=== PATIENT | male | born 1955 | race Caucasian/White ===

== ENCOUNTER → 2017-06-15 | Outpatient (CLI) | payer OTHER ==
[2017-06-15 15:09] LABS: ALT/SGPT 34 U/L (12-78); AST/SGOT 17 U/L (15-37); BLOOD UREA NITROGEN 17 mg/dl (7-18); BUN/CREATININE RATIO 14.5 (10-20); CALCIUM 9.6 mg/dl (8.5-10.1); CARBON DIOXIDE 26 mmol/L (21-32); CHLORIDE 109 mmol/L (98-107); CHOLESTEROL 147 mg/dl (0-200); GLUCOSE 97 mg/dl (70-99); POTASSIUM 4.2 mmol/L (3.5-5.1); SODIUM 141 mmol/L (136-145)
[2017-06-15 15:14] LABS: ALB/GLOB RATIO 1.1 (0.9-2); ALKALINE PHOSPHATASE 88 U/L (45-117); CHOLESTEROL/HDL RATIO 4.5; HDL CHOLESTEROL 33 mg/dl; LDL CHOLESTEROL CALCULATED 77 mg/dl; TRIGLYCERIDES 183 mg/dl (0-150); VERY LOW DENSITY LIPOPROT CALC 37 mg/dl
== END | disposition home or self-care (01) ==
LOC: C.LAB1850 13:42
PROVIDERS: ATTEND Family Medicine
DX: E78.5 Hyperlipidemia, unspecified (principal)

== ENCOUNTER 2017-12-24 23:34 | Inpatient (IN) | payer OTHER ==
[~2017-12-24] VITALS: Ht 188 cm; Wt 101.3 kg
[2017-12-24] MEDS ORDERED: DILTIAZEM BOLUS / DRIP IV STA (23:47)
[2017-12-24] MEDS ORDERED: ASPI81TA28 PO (23:56)
[2017-12-24] MEDS ORDERED: SIMV10TA2 PO (23:56)
[2017-12-24] MEDS ORDERED: RANITAB33 PO (23:57)
[2017-12-25] MEDS ORDERED: DILTIAZEM HCL 5 MG/ML 5 ML VIAL BOLUS/OMNI IV STA (00:01)
[2017-12-25 00:11] LABS: BASO % 0.3 %; BASO ABS # 0.03 K/uL (0-0.2); EOS % 1.8 %; HEMATOCRIT 46.4 % (42-52); HEMOGLOBIN 15.8 g/dL (14.0-18.0); IG# 0.12 K/uL (0.00-0.02); LYMPH % 39.7 %; LYMPH ABS # 4.46 K/uL (1.2-3.4); MEAN CELL VOLUME 87.1 fL (80-100); MEAN CORPUSCULAR HEMOGLOBIN 29.6 pg (25-34); MEAN CORPUSCULAR HGB CONC 34.1 g/dl (32-36); MEAN PLATELET VOLUME 10.3 fL (7.4-10.4); MONO % 5.8 %; MONO ABS # 0.65 K/uL (0.11-0.59); NEUT % 51.3 %; NEUT ABS # 5.77 K/uL (1.4-6.5); PLATELET COUNT 226 K/uL (130-400); RED CELL DISTRIBUTION WIDTH CV 12.9 % (11.5-14.5); RED CELL DISTRIBUTION WIDTH SD 40.9 fL (36.4-46.3); WHITE BLOOD COUNT 11.23 K/uL (4.8-10.8)
[2017-12-25] MEDS ORDERED: DILTIAZEM HCL INJ 125 MG in DEXTROSE 5% 100ML IV PRN (00:15)
[2017-12-25 00:28] LABS: ALT/SGPT 30 U/L (12-78); AST/SGOT 19 U/L (15-37); BLOOD UREA NITROGEN 21 mg/dl (7-18); CALCIUM 10.5 mg/dl (8.5-10.1); CARBON DIOXIDE 29 mmol/L (21-32); CREATININE 1.09 mg/dl (0.60-1.40); GLUCOSE 122 mg/dl (70-99); POTASSIUM 3.9 mmol/L (3.5-5.1); SODIUM 141 mmol/L (136-145)
[2017-12-25 00:29] LABS: PTT PATIENT 23.4 SECONDS (21.0-31.0)
[2017-12-25 00:39] LABS: ALKALINE PHOSPHATASE 108 U/L (45-117); CKMB 2.2 ng/ml (0.5-3.6); TOTAL PROTEIN 8.1 gm/dl (6.4-8.2)
[2017-12-25] MEDS ORDERED: LACTATED RINGER'S 1000ML 1,000 ML IV STA (01:29)
[2017-12-25] MEDS ORDERED: POTASSIUM CHLORIDE 10 MEQ TABCR PO STA (01:29)
--- NOTE | 2017-12-25 01:35 | EMERGENCY ROOM VISIT NOTE ---
History Report prepared by Alirio: Daniel Lerner Under the Supervision of: Dr. El Pereira D.O. First contact with patient: 23:43 Chief Complaint: IRREGULAR HEARTBEAT Stated Complaint: irregular heart beat History of Present Illness The patient is a 62 year old male who presents to the Emergency Room with complaints of an intermittent irregular heart beat beginning 2-3 weeks ago. The patient states that he developed a cold three weeks ago, and felt like he had fluid in his chest. He notes that his cold caused him to also have a fever and sore throat. He reports that he feels SOB and feels like he cannot take a deep breath without coughing. The patient states that he is still bringing up mucus when he coughs. He notes that his heart beat felt abnormal tonight while he was watching television. He reports that he has felt similar symptoms before, and states that his heart felt like it was fluttering. The patient notes that his heart beat now feels abnormal compared to being a flutter. He reports that his prior episodes only lasted a few minutes and then went away on their own. The patient states that his symptoms are lasting longer tonight, prompting his visit to the emergency department. He denies any lightheadedness and numbness. He notes that he has a history of high cholesterol. Source of History: patient Onset: 2-3 weeks ago Position: chest Quality: other (abnormal heart beat) Timing: intermittent Associated Symptoms: + fevers, + sorethroat, + cough (productive), + SOB Note: The patient denies any lightheadedness and numbness. Review of Systems See HPI for pertinent positives & negatives. A total of 10 systems reviewed and were otherwise negative. Past Medical & Surgical Medical Problems: (1) High cholesterol Family History No pertinent family history stated. Social History Smoking Status: Never Smoker Marital Status: Housing Status: lives with family Occupation Status: employed Current/Historical Medications Scheduled Aspirin (Aspirin Ec), 81 MG PO QPM Simvastatin (Zocor), 10 MG PO QPM Scheduled PRN Ranitidine Hcl (Zantac), 75 MG PO DAILY PRN for GI Upset Allergies Uncoded Allergies: PENICILLIN (Allergy, Unknown, unknown, 12/24/17) Physical Exam Vital Signs Date Time Temp Pulse Resp B/P (MAP) Pulse Ox O2 Delivery O2 Flow Rate FiO2 12/25/17 01:12 109/88 4/22/18 01:00 101 19 96 Room Air 12/25/17 00:30 95 18 118/74 95 Room Air 12/25/17 00:26 109 12/25/17 00:25 140 12/25/17 00:25 123 12/25/17 00:11 96 Room Air 12/25/17 00:00 139 21 128/105 96 Room Air 12/24/17 23:55 172 12/24/17 23:50 94 Room Air 12/24/17 23:37 36.5 105 20 138/91 97 Room Air Physical Exam CONSTITUTIONAL/VITAL SIGNS: Reviewed / noted above. GENERAL: Non-toxic in appearance. INTEGUMENTARY: Warm, dry, and [place]. HEAD: Normocephalic. EYES: without scleral icterus or trauma. ENT/OROPHARYNX: clear and moist. LYMPHADENOPATHY/NECK: Is supple without lymphadenopathy or meningismus. RESPIRATORY: Lungs clear and equal. CARDIOVASCULAR: Rapid and irregular. GI/ABDOMEN: Soft and nontender. No organomegaly or pulsatile mass. No rebound or guarding. Normal bowel sounds. EXTREMITIES: Warm and well perfused. BACK: No CVA tenderness. NEUROLOGICAL: Intact without focal deficits. PSYCHIATRIC: normal affect. MUSCULOSKELETAL: Normally developed with good muscle tone. Medical Decision & Procedures ER Provider Diagnostic Interpretation: Radiology results as stated below per my review and interpretation: CHEST X-RAY: No acute disease. No pneumothorax. No pneumonia. No cardiomegaly. Laboratory Results 12/24/17 23:47 Red Blood Count 5.33, Mean Corpuscular Volume 87.1, Mean Corpuscular Hemoglobin 29.6, Mean Corpuscular Hemoglobin Concent 34.1, Mean Platelet Volume 10.3, Neutrophils (%) (Auto) 51.3, Lymphocytes (%) (Auto) 39.7, Monocytes (%) (Auto) 5.8, Eosinophils (%) (Auto) 1.8, Basophils (%) (Auto) 0.3, Neutrophils # (Auto) 5.77, Lymphocytes # (Auto) 4.46, Monocytes # (Auto) 0.65, Eosinophils # (Auto) 0.20, Basophils # (Auto) 0.03 12/24/17 23:47 Test 12/24/17 23:47 White Blood Count 11.23 K/uL (4.8-10.8) Red Blood Count 5.33 M/uL (4.7-6.1) Hemoglobin 15.8 g/dL (14.0-18.0) Hematocrit 46.4 % (42-52) Mean Corpuscular Volume 87.1 fL (80-100) Mean Corpuscular Hemoglobin 29.6 pg (25-34) Mean Corpuscular Hemoglobin Concent 34.1 g/dl (32-36) Platelet Count 226 K/uL (130-400) Mean Platelet Volume 10.3 fL (7.4-10.4) Neutrophils (%) (Auto) 51.3 % Lymphocytes (%) (Auto) 39.7 % Monocytes (%) (Auto) 5.8 % Eosinophils (%) (Auto) 1.8 % Basophils (%) (Auto) 0.3 % Neutrophils # (Auto) 5.77 K/uL (1.4-6.5) Lymphocytes # (Auto) 4.46 K/uL (1.2-3.4) Monocytes # (Auto) 0.65 K/uL (0.11-0.59) Eosinophils # (Auto) 0.20 K/uL (0-0.5) Basophils # (Auto) 0.03 K/uL (0-0.2) RDW Standard Deviation 40.9 fL (36.4-46.3) RDW Coefficient of Variation 12.9 % (11.5-14.5) Immature Granulocyte % (Auto) 1.1 % Immature Granulocyte # (Auto) 0.12 K/uL (0.00-0.02) Prothrombin Time 10.0 SECONDS (9.0-12.0) Prothromb Time International Ratio 1.0 (0.9-1.1) Activated Partial Thromboplast Time 23.4 SECONDS (21.0-31.0) Partial Thromboplastin Ratio 0.9 Anion Gap 5.0 mmol/L (3-11) Est Creatinine Clear Calc Drug Dose 91.9 ml/min Estimated GFR () 85.1 Estimated GFR (Non- 73.4 BUN/Creatinine Ratio 19.1 (10-20) Calcium Level 10.5 mg/dl (8.5-10.1) Total Bilirubin 0.4 mg/dl (0.2-1) Direct Bilirubin 0.1 mg/dl (0-0.2) Aspartate Amino Transf (AST/SGOT) 19 U/L (15-37) Alanine Aminotransferase (ALT/SGPT) 30 U/L (12-78) Alkaline Phosphatase 108 U/L (45-117) Total Creatine Kinase 132 U/L (39-308) Creatine Kinase MB 2.2 ng/ml (0.5-3.6) Creatine Kinase MB Ratio 1.7 (0-3.0) Troponin I < 0.015 ng/ml (0-0.045) Total Protein 8.1 gm/dl (6.4-8.2) Albumin 4.0 gm/dl (3.4-5.0) Thyroid Stimulating Hormone (TSH) 5.260 uIu/ml (0.300-4.500) Laboratory results as stated above per my review. Medications Administered Medications (Trade) Dose Ordered Sig/Mari Route Start Time Stop Time Status Last Admin Dose Admin Diltiazem HCl (Cardizem Inj) 20 mg NOW STAT IV 12/25/17 00:01 12/25/17 00:02 DC 12/25/17 00:24 20 MG Diltiazem HCl 125 mg/Dextrose 125 ml @ 0 mls/hr Q0M PRN IV 12/25/17 00:15 01/24/18 00:14 12/25/17 00:25 10 MLS/HR ECG Per My Interpretation Indication: palpitations Rate (beats per minute): 174 Rhythm: atrial fibrillation Findings: no ectopy, other (No ST elevation) ED Course 2344: Previous medical records were reviewed. The patient was evaluated in room B10. A complete history and physical examination was performed. 0001: Diltiazem HCl 20mg IV 0056: I reevaluated and updated the patient. 0111: On reevaluation, the patient is stable. I discussed the results and findings with him. He verbalized agreement of the treatment plan. [facility] The patient will be evaluated for further management and care. Medical Decision the differential was considered includes acute myocardial infarction, acute coronary syndrome, myocarditis, pericarditis, pericardial effusions /tamponade, esophageal perforation, thoracic aortic dissection, pulmonary embolism, pneumonia, pneumothorax, pancreatitis, shingles, acute cholecystitis, perforated abdominal viscus. This is a 62-year-old male who presents to the ED with a chief complaint of palpitations. The patient states that his symptoms started earlier today. Details are listed above. The patient also reports some intermittent palpitations that would resolve after a few minutes over the past several weeks. Tonight his symptoms do not resolve. He states that he has had the symptoms for about 4-6 hours. His physical exam as noted above. He does have atrial fibrillation with RVR noted on his 12-lead EKG and monitor. There are no ischemic changes. CBC and complete metabolic panel were unremarkable. Troponin was negative, TSH was slightly elevated. Patient was started on IV Cardizem bolus and drip. This did improve the heart rate somewhat. His initial heart rate was in the 170s. The heart rate improved to the 100 range. He will be seen by the hospitalist service for further inpatient evaluation and care. Medication Reconcilliation Current Medication List: was personally reviewed by me Blood Pressure Screening Patient's blood pressure: Normal blood pressure Blood pressure disposition: Did not require urgent referral Consults Time Called: 0104 [facility] Returned Call: 0111 Discussed the patient's case. The patient will be evaluated for further treatment and disposition. Impression Primary Impression: Atrial fibrillation with RVR Additional Impression: New onset a-fib Scribe Attestation The scribe's documentation has been prepared under my direction and personally reviewed by me in its entirety. I confirm that the note above accurately reflects all work, treatment, procedures, and medical decision making performed by me. Departure Information Dispostion Being Evaluated By Hospitalist Referrals Alvaro Watt M.D. (PCP) Patient Instructions My [facility] Problem Qualifiers
[2017-12-25] MEDS ORDERED: METOPROLOL SUCC 25MG EXT REL TAB PO STA (01:44)
[2017-12-25 02:47] LABS: PHOSPHORUS 3.6 mg/dl (2.5-4.9)
--- NOTE | 2017-12-25 02:53 | Progress Note ---
Internal Med Progress Note Date of Service: Dec 25, 2017. Provider Documentation: I was consulted by Dr. Pereira ([facility] to admit patient for new onset AF. Patient PCP is Dr. Watt from [facility]. Patient requesting to have [facility] providers for confinement due to his [employer] insurance. Patient is certain that he will be paying extra for [facility] provider services basing from his experience. Dr. De Paz ([facility] early intervention school psychologist) has kindly agreed admit patient. Vital Signs: Date Time Temp Pulse Resp B/P (MAP) Pulse Ox O2 Delivery O2 Flow Rate FiO2 12/25/17 04:33 36.6 80 18 131/82 99 Room Air 12/25/17 03:45 36.5 109 16 110/79 96 12/25/17 03:36 109 16 110/79 96 Room Air 12/25/17 02:00 99 17 108/74 95 Room Air 12/25/17 01:30 98 19 136/65 95 Room Air 12/25/17 01:12 109/88 12/25/17 01:00 101 19 96 Room Air 12/25/17 00:30 95 18 118/74 95 Room Air 12/25/17 00:26 109 12/25/17 00:25 140 12/25/17 00:25 123 12/25/17 00:11 96 Room Air 12/25/17 00:00 139 21 128/105 96 Room Air 12/24/17 23:55 172 12/24/17 23:50 94 Room Air 12/24/17 23:37 36.5 105 20 138/91 97 Room Air Lab Results: Results Past 24 Hours Test 12/24/17 23:47 12/25/17 04:26 Range/Units White Blood Count 11.23 4.8-10.8 K/uL Red Blood Count 5.33 4.7-6.1 M/uL Hemoglobin 15.8 14.0-18.0 g/dL Hematocrit 46.4 42-52 % Mean Corpuscular Volume 87.1 80-100 fL Mean Corpuscular Hemoglobin 29.6 25-34 pg Mean Corpuscular Hemoglobin Concent 34.1 32-36 g/dl Platelet Count 226 130-400 K/uL Mean Platelet Volume 10.3 7.4-10.4 fL Neutrophils (%) (Auto) 51.3 % Lymphocytes (%) (Auto) 39.7 % Monocytes (%) (Auto) 5.8 % Eosinophils (%) (Auto) 1.8 % Basophils (%) (Auto) 0.3 % Neutrophils # (Auto) 5.77 1.4-6.5 K/uL Lymphocytes # (Auto) 4.46 1.2-3.4 K/uL Monocytes # (Auto) 0.65 0.11-0.59 K/uL Eosinophils # (Auto) 0.20 0-0.5 K/uL Basophils # (Auto) 0.03 0-0.2 K/uL RDW Standard Deviation 40.9 36.4-46.3 fL RDW Coefficient of Variation 12.9 11.5-14.5 % Immature Granulocyte % (Auto) 1.1 % Immature Granulocyte # (Auto) 0.12 0.00-0.02 K/uL Prothrombin Time 10.0 9.0-12.0 SECONDS Prothromb Time International Ratio 1.0 0.9-1.1 Activated Partial Thromboplast Time 23.4 21.0-31.0 SECONDS Partial Thromboplastin Ratio 0.9 D-Dimer 520 0-500 ug/L FEU Sodium Level 141 141 136-145 mmol/L Potassium Level 3.9 4.2 3.5-5.1 mmol/L Chloride Level 107 109 98-107 mmol/L Carbon Dioxide Level 29 28 21-32 mmol/L Anion Gap 5.0 4.0 3-11 mmol/L Blood Urea Nitrogen 21 17 7-18 mg/dl Creatinine 1.09 0.95 0.60-1.40 mg/dl Est Creatinine Clear Calc Drug Dose 91.9 101.9 ml/min Estimated GFR () 85.1 100.4 Estimated GFR (Non- 73.4 86.7 BUN/Creatinine Ratio 19.1 18.1 10-20 Random Glucose 122 106 70-99 mg/dl Calcium Level 10.5 10.1 8.5-10.1 mg/dl Phosphorus Level 3.6 3.0 2.5-4.9 mg/dl Magnesium Level 2.1 2.1 1.8-2.4 mg/dl Total Bilirubin 0.4 0.3 0.2-1 mg/dl Direct Bilirubin 0.1 < 0.1 0-0.2 mg/dl Aspartate Amino Transf (AST/SGOT) 19 16 15-37 U/L Alanine Aminotransferase (ALT/SGPT) 30 27 12-78 U/L Alkaline Phosphatase 108 95 45-117 U/L Total Creatine Kinase 132 39-308 U/L Creatine Kinase MB 2.2 0.5-3.6 ng/ml Creatine Kinase MB Ratio 1.7 0-3.0 Troponin I < 0.015 0-0.045 ng/ml Total Protein 8.1 7.4 6.4-8.2 gm/dl Albumin 4.0 3.6 3.4-5.0 gm/dl Thyroid Stimulating Hormone (TSH) 5.260 0.300-4.500 uIu/ml Free Thyroxine 0.94 0.80-1.60 ng/dl Total Triiodothyronine 1.16 0.60-1.81 ng/ml Globulin 3.8 2.5-4.0 gm/dl Albumin/Globulin Ratio 0.9 0.9-2
--- NOTE | 2017-12-25 03:40 | History and Physical ---
History & Physical Date & Time of Service: Dec 25, 2017 at 03:39 Chief Complaint: irregular heart beat Primary Care Physician: Alvaro Watt M.D. History of Present Illness Source: patient 62-year-old male with a past medical history of hyperlipidemia presented with complaints of irregular heart rate intermittently which started about 3 weeks ago. The patient states that he had a history of atrial flutter several years ago and was on metoprolol which was stopped about 9 years ago. He had since been asymptomatic but developed intermittent palpitations about 3 weeks ago. The palpitations would normally resolve after a few minutes but tonight they seem to persist. denies any lightheadedness or dizziness, shortness of breath or chest pain. Past Medical/Surgical History Medical Problems: (1) Afib (2) High cholesterol Family History Noncontributory Social History Smoking Status: Never Smoker Smokeless Tobacco Use: No Alcohol Use: none Drug Use: none Marital Status: Housing status: lives with family Occupational Status: employed Immunizations History of Influenza Vaccine: Unknown History of Tetanus Vaccine?: Unknown History of Pneumococcal: Unknown History of Hepatitis B Vaccine: Unknown Allergies Uncoded Allergies: PENICILLIN (Allergy, Unknown, unknown, 12/24/17) Home Medications Scheduled Aspirin (Aspirin Ec), 81 MG PO QPM Simvastatin (Zocor), 10 MG PO QPM Scheduled PRN Ranitidine Hcl (Zantac), 75 MG PO DAILY PRN for GI Upset Review of Systems Constitutional: No fever, No chills Eyes: No worsening of vision ENT: No hearing loss Respiratory: No cough, No sputum, No shortness of breath Cardiovascular: + palpitations, No chest pain Abdomen: No pain, No nausea Musculoskeletal: No joint pain Genitourinary - Male: No hematuria, No dysuria, No urinary frequency Neurologic: No memory loss, No numbness/tingling Psychiatric: No depression symptoms Endocrine: No fatigue Hematologic / Lymphatic: No abnormal bleeding/bruising Integumentary: No rash Physical Exam Vital Signs Date Time Temp Pulse Resp B/P (MAP) Pulse Ox O2 Delivery O2 Flow Rate FiO2 12/25/17 03:36 109 16 110/79 96 Room Air 12/25/17 02:00 99 17 108/74 95 Room Air 12/25/17 01:30 98 19 136/65 95 Room Air 4/22/18 01:12 109/88 12/25/17 01:00 101 19 96 Room Air 12/25/17 00:30 95 18 118/74 95 Room Air 12/25/17 00:26 109 12/25/17 00:25 140 12/25/17 00:25 123 12/25/17 00:11 96 Room Air 12/25/17 00:00 139 21 128/105 96 Room Air 12/24/17 23:55 172 12/24/17 23:50 94 Room Air 12/24/17 23:37 36.5 105 20 138/91 97 Room Air General Appearance: WD/WN, no apparent distress Eyes: normal inspection ENT: hearing grossly normal Neck: supple Respiratory/Chest: chest non-tender, lungs clear, normal breath sounds, no respiratory distress, no accessory muscle use Cardiovascular: + irregularly irregular Abdomen/GI: non tender, soft Extremities/Musculoskelatal: no calf tenderness, no pedal edema Neurologic/Psych: alert, normal mood/affect, oriented x 3 Diagnostics Laboratory Results Results Past 24 Hours Test 12/24/17 23:47 Range/Units White Blood Count 11.23 4.8-10.8 K/uL Red Blood Count 5.33 4.7-6.1 M/uL Hemoglobin 15.8 14.0-18.0 g/dL Hematocrit 46.4 42-52 % Mean Corpuscular Volume 87.1 80-100 fL Mean Corpuscular Hemoglobin 29.6 25-34 pg Mean Corpuscular Hemoglobin Concent 34.1 32-36 g/dl Platelet Count 226 130-400 K/uL Mean Platelet Volume 10.3 7.4-10.4 fL Neutrophils (%) (Auto) 51.3 % Lymphocytes (%) (Auto) 39.7 % Monocytes (%) (Auto) 5.8 % Eosinophils (%) (Auto) 1.8 % Basophils (%) (Auto) 0.3 % Neutrophils # (Auto) 5.77 1.4-6.5 K/uL Lymphocytes # (Auto) 4.46 1.2-3.4 K/uL Monocytes # (Auto) 0.65 0.11-0.59 K/uL Eosinophils # (Auto) 0.20 0-0.5 K/uL Basophils # (Auto) 0.03 0-0.2 K/uL RDW Standard Deviation 40.9 36.4-46.3 fL RDW Coefficient of Variation 12.9 11.5-14.5 % Immature Granulocyte % (Auto) 1.1 % Immature Granulocyte # (Auto) 0.12 0.00-0.02 K/uL Prothrombin Time 10.0 9.0-12.0 SECONDS Prothromb Time International Ratio 1.0 0.9-1.1 Activated Partial Thromboplast Time 23.4 21.0-31.0 SECONDS Partial Thromboplastin Ratio 0.9 D-Dimer 520 0-500 ug/L FEU Sodium Level 141 136-145 mmol/L Potassium Level 3.9 3.5-5.1 mmol/L Chloride Level 107 98-107 mmol/L Carbon Dioxide Level 29 21-32 mmol/L Anion Gap 5.0 3-11 mmol/L Blood Urea Nitrogen 21 7-18 mg/dl Creatinine 1.09 0.60-1.40 mg/dl Est Creatinine Clear Calc Drug Dose 91.9 ml/min Estimated GFR () 85.1 Estimated GFR (Non- 73.4 BUN/Creatinine Ratio 19.1 10-20 Random Glucose 122 70-99 mg/dl Calcium Level 10.5 8.5-10.1 mg/dl Phosphorus Level 3.6 2.5-4.9 mg/dl Magnesium Level 2.1 1.8-2.4 mg/dl Total Bilirubin 0.4 0.2-1 mg/dl Direct Bilirubin 0.1 0-0.2 mg/dl Aspartate Amino Transf (AST/SGOT) 19 15-37 U/L Alanine Aminotransferase (ALT/SGPT) 30 12-78 U/L Alkaline Phosphatase 108 45-117 U/L Total Creatine Kinase 132 39-308 U/L Creatine Kinase MB 2.2 0.5-3.6 ng/ml Creatine Kinase MB Ratio 1.7 0-3.0 Troponin I < 0.015 0-0.045 ng/ml Total Protein 8.1 6.4-8.2 gm/dl Albumin 4.0 3.4-5.0 gm/dl Thyroid Stimulating Hormone (TSH) 5.260 0.300-4.500 uIu/ml Free Thyroxine 0.94 0.80-1.60 ng/dl Total Triiodothyronine 1.16 0.60-1.81 ng/ml Impression Assessment and Plan 62-year-old male with a past medical history of hyperlipidemia presented with complaints of intermittent palpitations but started about 3 weeks ago and have been persistent all day today. New onset atrial fibrillation with RVR -EKG suggestive of A. fib with RVR -Electrolytes within normal limits -TSH elevated at 5.26, T3 and T4 within normal limits -Started on Cardizem drip in the ER , Toprol-XL 25 mg QAM -[id number] score 0, annual stroke risk 0.2% and may not require anticoagulation considering low risk -He is already on 81 mg aspirin which will be continued -Echo ordered -Patient requests cardiology consult Hyperlipidemia: - Continue statin DVT prophylaxis: -SCDs Full code Admitted to telemetry Attending addendum: I have physically seen this patient, have supervised the medical residents activities, and agree with the H&P unless as otherwise noted. Assessment and Plan: New onset atrial fibrillation with RVR-- The patient will be admitted to telemetry for serial cardiac enzymes, serial EKG's, cardiac rhythm monitoring and a 2-D echocardiogram with Dopplers. The patient describes an initial possible episode about 10 years ago, and having been on Lopressor for 1 year, which was then discontinued. He reports palpitation sensations over the past few weeks, but nothing as persistent as this evening where his symptoms have lasted for several hours. He was initially presented to the [facility] service, but due to insurance reasons was changed over to [facility] service. He had already been started on a Cardizem drip by the emergency department, and had already been given Toprol-XL 25 mg. [id number] risk score suggest that he can continue to use aspirin 81 mg daily for prophylaxis as he has been up to this time for general heart prophylaxis. Consult cardiology for inpatient and outpatient follow-up. Hyperlipidemia-- Continue simvastatin 10 mg p.o. every evening. Check a fasting lipid panel and hemoglobin A1c. Advanced Directives Existing Advance Directive: No Existing Living Will: No Existing Power of Cigarette Paper Tester: No Resuscitation Status full VTE Prophylaxis Will order VTE Prophylaxis: Yes Social Service Consult None Apply Resident Tracking Resident Involvement: Resident Care Provided Care Provided: [facility]
[2017-12-25] MEDS ORDERED: ALUMINUM/MAGNESIUM/SIMETH (MAALOX MAX) 30 ML UDC PO PRN (03:45)
[2017-12-25] MEDS ORDERED: ACETAMINOPHEN 325 MG TAB PO PRN (03:45)
[2017-12-25 04:33] VITALS: BP 131/82; PULSE 80; TEMP 36.6; O2SAT 99; Ht 188 cm; Wt 101.3 kg
[2017-12-25] MEDS ORDERED: RANITIDINE HCL 150 MG TAB PO PRN (04:45)
[2017-12-25] MEDS ORDERED: SODIUM CHLORIDE 0.9% 1000ML 1,000 ML IV SCH (05:00)
[2017-12-25 05:06] LABS: ALBUMIN 3.6 gm/dl (3.4-5.0); ALT/SGPT 27 U/L (12-78); AST/SGOT 16 U/L (15-37); BLOOD UREA NITROGEN 17 mg/dl (7-18); CALCIUM 10.1 mg/dl (8.5-10.1); CARBON DIOXIDE 28 mmol/L (21-32); CREATININE 0.95 mg/dl (0.60-1.40); GLUCOSE 106 mg/dl (70-99); POTASSIUM 4.2 mmol/L (3.5-5.1); SODIUM 141 mmol/L (136-145)
[2017-12-25 05:12] LABS: ALKALINE PHOSPHATASE 95 U/L (45-117); TOTAL PROTEIN 7.4 gm/dl (6.4-8.2)
--- NOTE | 2017-12-25 06:17 | DIAGNOSTIC IMAGING REPORT ---
CHEST ONE VIEW PORTABLE CLINICAL HISTORY: Evaluate Fever/Sepsis fever COMPARISON STUDY: No previous studies for comparison. FINDINGS: The bones soft tissues and hemidiaphragms are normal. The cardiomediastinal silhouette is normal. The lungs are clear. The pulmonary vasculature is normal. IMPRESSION: Negative chest. The above report was generated using voice recognition software. It may contain grammatical, syntax or spelling errors. Electronically signed by: Bryce Gregg M.D. 12/25/2017 6:16 AM Dictated Date/Time: 12/25/2017 6:16 AM
[2017-12-25 07:31] VITALS: BP 118/71; PULSE 87; TEMP 37; O2SAT 98
[2017-12-25 08:00] VITALS: O2SAT 98
[2017-12-25] MEDS ORDERED: METOPROLOL SUCC 25MG EXT REL TAB PO SCH ×2 (09:00→21:00)
--- NOTE | 2017-12-25 09:09 | Family Medicine Progress Note ---
Progress Note Date of Service Dec 25, 2017. Subjective Pt evaluation today including: conversation w/ patient, conversation w/ family () Found patient lying upright in the bed. He recounts the HPI events, stating that last night the palpitations seemed faster than the prior 3-4 weeks. Says since beginning medication here that feeling has resolved. Says that for a brief time during the same 'faster' feeling that he had some self-rated 2/10 chest tightness, but this has also resolved. Otherwise denies any chest pain or discomfort. Denies any SOB, cough, or respiratory changes throughout this time. This morning, has no acute concerns. Constitutional: No fever Respiratory: No cough, No shortness of breath Cardiovascular: + palpitations, No chest pain, No edema Abdomen: No pain, No nausea, No vomiting Medications Current Inpatient Medications Medications (Trade) Dose Ordered Sig/Mari Route Start Time Stop Time Status Last Admin Dose Admin Sodium Chloride 1,000 ml @ 125 mls/hr Q8H IV 12/25/17 05:00 01/24/18 04:59 12/25/17 05:04 125 MLS/HR Acetaminophen (Tylenol Tab) 650 mg Q4H PRN PO 12/25/17 03:45 01/24/18 03:44 Al Hydrox/Mg Hydrox/Simethicone (Maalox Max Susp) 15 ml Q4H PRN PO 12/25/17 03:45 01/24/18 03:44 Metoprolol Succinate (Toprol Xl Tab) 25 mg QAM PO 12/25/17 09:00 01/24/18 08:59 Future Hold Aspirin (Ecotrin Tab) 81 mg QPM PO 12/25/17 21:00 01/24/18 20:59 Simvastatin (Zocor Tab) 10 mg QPM PO 12/25/17 21:00 01/24/18 20:59 Ranitidine HCl (zANTac TAB) 75 mg DAILY PRN PO 12/25/17 04:45 01/24/18 04:44 Objective Vital Signs Date Time Temp Pulse Resp B/P (MAP) Pulse Ox O2 Delivery O2 Flow Rate FiO2 12/25/17 07:31 37.0 87 18 118/71 (87) 98 12/25/17 04:33 36.6 80 18 131/82 99 Room Air 12/25/17 03:45 36.5 109 16 110/79 96 12/25/17 03:36 109 16 110/79 96 Room Air 12/25/17 02:00 99 17 108/74 95 Room Air 12/25/17 01:30 98 19 136/65 95 Room Air 12/25/17 01:12 109/88 12/25/17 01:00 101 19 96 Room Air 12/25/17 00:30 95 18 118/74 95 Room Air 12/25/17 00:26 109 12/25/17 00:25 140 12/25/17 00:25 123 12/25/17 00:11 96 Room Air 12/25/17 00:00 139 21 128/105 96 Room Air 12/24/17 23:55 172 12/24/17 23:50 94 Room Air 12/24/17 23:37 36.5 105 20 138/91 97 Room Air Physical Exam Notes: General Appearance: Awake, alert & oriented, comfortable in general, NAD. CV: +S1S2 irregularly irregular but not tachycardic, no murmur. 2+ radial, carotid, dorsalis pedis pulses. No carotid bruits bilaterally. Pulm: Clear to auscultation throughout. Abdomen: +BS, soft, non-tender, non-distended. Extremities: No pedal edema or calf tenderness. Moving all extremities naturally and easily. Neuro: No gross neuro deficits. Laboratory Results 12/24/17 23:47 Red Blood Count 5.33, Mean Corpuscular Volume 87.1, Mean Corpuscular Hemoglobin 29.6, Mean Corpuscular Hemoglobin Concent 34.1, Mean Platelet Volume 10.3, Neutrophils (%) (Auto) 51.3, Lymphocytes (%) (Auto) 39.7, Monocytes (%) (Auto) 5.8, Eosinophils (%) (Auto) 1.8, Basophils (%) (Auto) 0.3, Neutrophils # (Auto) 5.77, Lymphocytes # (Auto) 4.46, Monocytes # (Auto) 0.65, Eosinophils # (Auto) 0.20, Basophils # (Auto) 0.03 12/25/17 04:26 Test 12/24/17 23:47 12/25/17 04:26 12/25/17 08:38 White Blood Count 11.23 K/uL (4.8-10.8) Red Blood Count 5.33 M/uL (4.7-6.1) Hemoglobin 15.8 g/dL (14.0-18.0) Hematocrit 46.4 % (42-52) Mean Corpuscular Volume 87.1 fL (80-100) Mean Corpuscular Hemoglobin 29.6 pg (25-34) Mean Corpuscular Hemoglobin Concent 34.1 g/dl (32-36) Platelet Count 226 K/uL (130-400) Mean Platelet Volume 10.3 fL (7.4-10.4) Neutrophils (%) (Auto) 51.3 % Lymphocytes (%) (Auto) 39.7 % Monocytes (%) (Auto) 5.8 % Eosinophils (%) (Auto) 1.8 % Basophils (%) (Auto) 0.3 % Neutrophils # (Auto) 5.77 K/uL (1.4-6.5) Lymphocytes # (Auto) 4.46 K/uL (1.2-3.4) Monocytes # (Auto) 0.65 K/uL (0.11-0.59) Eosinophils # (Auto) 0.20 K/uL (0-0.5) Basophils # (Auto) 0.03 K/uL (0-0.2) RDW Standard Deviation 40.9 fL (36.4-46.3) RDW Coefficient of Variation 12.9 % (11.5-14.5) Immature Granulocyte % (Auto) 1.1 % Immature Granulocyte # (Auto) 0.12 K/uL (0.00-0.02) Prothrombin Time 10.0 SECONDS (9.0-12.0) Prothromb Time International Ratio 1.0 (0.9-1.1) Activated Partial Thromboplast Time 23.4 SECONDS (21.0-31.0) Partial Thromboplastin Ratio 0.9 D-Dimer 520 ug/L FEU (0-500) Total Creatine Kinase 132 U/L (39-308) Creatine Kinase MB 2.2 ng/ml (0.5-3.6) Creatine Kinase MB Ratio 1.7 (0-3.0) Thyroid Stimulating Hormone (TSH) 5.260 uIu/ml (0.300-4.500) Free Thyroxine 0.94 ng/dl (0.80-1.60) Total Triiodothyronine 1.16 ng/ml (0.60-1.81) Anion Gap 4.0 mmol/L (3-11) Est Creatinine Clear Calc Drug Dose 101.9 ml/min Estimated GFR () 100.4 Estimated GFR (Non- 86.7 BUN/Creatinine Ratio 18.1 (10-20) Calcium Level 10.1 mg/dl (8.5-10.1) Phosphorus Level 3.0 mg/dl (2.5-4.9) Magnesium Level 2.1 mg/dl (1.8-2.4) Total Bilirubin 0.3 mg/dl (0.2-1) Direct Bilirubin < 0.1 mg/dl (0-0.2) Aspartate Amino Transf (AST/SGOT) 16 U/L (15-37) Alanine Aminotransferase (ALT/SGPT) 27 U/L (12-78) Alkaline Phosphatase 95 U/L (45-117) Total Protein 7.4 gm/dl (6.4-8.2) Albumin 3.6 gm/dl (3.4-5.0) Globulin 3.8 gm/dl (2.5-4.0) Albumin/Globulin Ratio 0.9 (0.9-2) Assessment and Plan 62-year-old male was admitted on for A. fib with RVR after experiencing palpitations for the past 3-4 weeks. PMH: HLD New onset atrial fibrillation with RVR: Patient says he has a history of atrial flutter several years ago and was on metoprolol for a brief time. With these recent palpitations, the patient experienced some mild chest tightness when his rates were their highest elevation. No associated respiratory symptoms. CXR here showed nothing acute. Normal troponins. Cardiology was consulted. An echocardiogram was performed and was reassuring (see full report). He was started on a diltiazem drip and transitioned over to both metoprolol and diltiazem p.o. with some conversion back to sinus this point. - Goal is to transition to a single agent upon discharge. - His CHADS-VASc score is zero therefore anticoagulation is not warranted at this time. However, he remains on his home aspirin 81 mg for general cardiac prevention. Hyperlipidemia: On home Zocor 10 mg daily. Code status: Full code Diet: AHA heart healthy DVT prophy: SCD's PT/OT: Deferred Dispo: Admit to telemetry Resident Physician Supervision Note: I interviewed and examined the patient. Discussed with Dr. Pink and agree with findings and plan as documented in the note. Any exceptions or clarifications are listed here: None Documented By: Geovanni Vaca feeling better now that rates are better no sob/lightheaded, is still feeling fluttering vitals noted nad breathing unlabored irreg irreg echo P PAF / RVR - echo pending, TSH sl high free T4 OK, rate control improving - transition to PO meds. appears almost certainly to only need rate control discussed role of rhythm control - would want to see if he has exertional sx. as long as no findings on echo CHADSVasc appearing nil. elevated TSH - repeat ~4wks CP - resolved. seemed to only be peak stress. EKG nonspecific given rate, troponin negative. likely related to having HR 170+ Resident Tracking Resident Involvement: Resident Care Provided Care Provided: Adult Hospital Medicine (inpatient)
[2017-12-25] MEDS ORDERED: METOPROLOL SUCC 25MG EXT REL TAB PO ONE (11:04)
[2017-12-25 11:24] VITALS: BP 118/73; PULSE 96; TEMP 37; O2SAT 96
[2017-12-25] MEDS ORDERED: DILTIAZEM HCL 30 MG TAB PO SCH (13:15)
--- NOTE | 2017-12-25 13:45 | Cardiology Consultation ---
Cardiology Consultation Date of Consultation: Dec 25, 2017. Requesting Physician: Dr. Holloway Attending Physician: Dr. Vaca Reason for Consultation: Atrial fibrillation Pt evaluation today including: conversation w/ patient, conversation w/ family , physical exam, chart review, lab review, review of studies, review of inpatient medication list, conversation w/ attending (primary team) History of Present Illness Mr. Narayan is a very pleasant 62-year-old gentleman with a history significant for paroxysmal atrial flutter and dyslipidemia. He was admitted to [facility] on 12/24/2017 with atrial fibrillation with rapid ventricular response. He admits that approximately 9 years ago he was diagnosed with atrial flutter when he wore an outpatient monitor for palpitations. He was started on metoprolol and took the medication for approximately 1 year. At that point was discontinued by his PCP as his symptoms had resolved. For the past 3 weeks he has had intermittent fluttering sensation that would last for 2-4 hours before spontaneously resolving. Symptoms would occur during the day and his heart did not feel as though it was racing. Last evening, he felt more palpitations and when he lay down to go to bed he felt as though his heart was racing. The symptoms continued and therefore he sought medical evaluation. He was found to be in atrial fibrillation with rapid ventricular response. He was started on a diltiazem drip. His symptoms improved. He no longer and felt the racing symptoms but did feel occasional fluttering if laying in bed at rest. If he was otherwise preoccupied with conversation with family, he would not notice the palpitations, described as a fluttering sensation. On a diltiazem drip of 5 milligrams/hour, his heart rate was reasonably controlled. He was then started on metoprolol succinate 25 mg twice daily by the primary service. His family then visited and his heart rate became more elevated and nursing staff increased diltiazem drip to 10 milligrams/hour. When he felt his heart racing, he developed a left upper chest tightness that was rated mild, 2/10. This pain was constant for a few hours before resolving after medical treatment was initiated as above. He does not exercise but remains active at home. He denies exertional shortness of breath, syncope, near-syncope, or chest discomfort. He denies edema, melena, hematochezia, hematuria, or other bleeding. He did have a sore throat, rhinorrhea, cough, and low-grade fever of 100.8 F approximately 2 weeks ago. His symptoms resolved in approximately 2 days. Review of systems: As above review of systems otherwise negative/unremarkable. Past Medical/Surgical History 1. Paroxysmal atrial flutter 2. Dyslipidemia Family History Father had CABG in his 60s. He at 91 years of age. Social History Smoking Status: Never Smoker History of Alcohol Use: No He smoked cigars occasionally approximately 30 years ago. No significant alcohol. No drugs. Lives at home with his . Has 2 sons and 1 daughter. His , daughter Eula, and her significant other, Sheldon, accompany him today. He works as a software release manager. He lives in the [facility]. Review of Systems Respiratory: No cough, No shortness of breath Cardiac: + palpitations, No chest pain, No edema Allergies Uncoded Allergies: PENICILLIN (Allergy, Unknown, unknown, 12/24/17) Medications Current Inpatient Medications Medications (Trade) Dose Ordered Sig/Mari Route Start Time Stop Time Status Last Admin Dose Admin Acetaminophen (Tylenol Tab) 650 mg Q4H PRN PO 12/25/17 03:45 01/24/18 03:44 Al Hydrox/Mg Hydrox/Simethicone (Maalox Max Susp) 15 ml Q4H PRN PO 12/25/17 03:45 01/24/18 03:44 Aspirin (Ecotrin Tab) 81 mg QPM PO 12/25/17 21:00 01/24/18 20:59 Simvastatin (Zocor Tab) 10 mg QPM PO 12/25/17 21:00 01/24/18 20:59 Ranitidine HCl (zANTac TAB) 75 mg DAILY PRN PO 12/25/17 04:45 01/24/18 04:44 Metoprolol Succinate (Toprol Xl Tab) 25 mg BID PO 12/25/17 21:00 01/24/18 20:59 Diltiazem HCl (Cardizem Tab) 30 mg Q6 PO 12/25/17 13:15 01/24/18 13:14 Physical Exam Vital Signs Past 12 Hours Date Time Temp Pulse Resp B/P (MAP) Pulse Ox O2 Delivery O2 Flow Rate FiO2 12/25/17 12:00 Room Air 12/25/17 11:24 37.0 96 18 118/73 (88) 96 12/25/17 08:00 98 Room Air 12/25/17 07:31 37.0 87 18 118/71 (87) 98 12/25/17 04:33 36.6 80 18 131/82 99 Room Air 12/25/17 03:45 36.5 109 16 110/79 96 12/25/17 03:36 109 16 110/79 96 Room Air 12/25/17 02:00 99 17 108/74 95 Room Air 12/25/17 01:30 98 19 136/65 95 Room Air Gen.: No acute distress. Alert and oriented. HEENT: Anicteric sclera. Neck: No JVD. No bruits. Normal carotid upstrokes bilaterally. Cardiac: PMI was nondisplaced. No ventricular heave. Irregularly irregular. Normal S1-S2. No murmurs, rubs, or gallops. Pulmonary: Clear to auscultation bilaterally without wheezes, rales, or rhonchi. Abdomen: Soft, nontender, nondistended, with normoactive bowel sounds. No bruits noted. Extremities: 2+ radial pulses bilaterally. 2+ posterior tibialis pulses bilaterally. No edema or cyanosis. Psychiatric: Affect appears appropriate. Data Laboratory Results: Last 24 Hours Test 12/24/17 23:47 12/25/17 04:26 12/25/17 08:38 White Blood Count 11.23 K/uL Red Blood Count 5.33 M/uL Hemoglobin 15.8 g/dL Hematocrit 46.4 % Mean Corpuscular Volume 87.1 fL Mean Corpuscular Hemoglobin 29.6 pg Mean Corpuscular Hemoglobin Concent 34.1 g/dl Platelet Count 226 K/uL Mean Platelet Volume 10.3 fL Neutrophils (%) (Auto) 51.3 % Lymphocytes (%) (Auto) 39.7 % Monocytes (%) (Auto) 5.8 % Eosinophils (%) (Auto) 1.8 % Basophils (%) (Auto) 0.3 % Neutrophils # (Auto) 5.77 K/uL Lymphocytes # (Auto) 4.46 K/uL Monocytes # (Auto) 0.65 K/uL Eosinophils # (Auto) 0.20 K/uL Basophils # (Auto) 0.03 K/uL RDW Standard Deviation 40.9 fL RDW Coefficient of Variation 12.9 % Immature Granulocyte % (Auto) 1.1 % Immature Granulocyte # (Auto) 0.12 K/uL Prothrombin Time 10.0 SECONDS Prothromb Time International Ratio 1.0 Activated Partial Thromboplast Time 23.4 SECONDS Partial Thromboplastin Ratio 0.9 D-Dimer 520 ug/L FEU Sodium Level 141 mmol/L 141 mmol/L Potassium Level 3.9 mmol/L 4.2 mmol/L Chloride Level 107 mmol/L 109 mmol/L Carbon Dioxide Level 29 mmol/L 28 mmol/L Anion Gap 5.0 mmol/L 4.0 mmol/L Blood Urea Nitrogen 21 mg/dl 17 mg/dl Creatinine 1.09 mg/dl 0.95 mg/dl Est Creatinine Clear Calc Drug Dose 91.9 ml/min 101.9 ml/min Estimated GFR () 85.1 100.4 Estimated GFR (Non- 73.4 86.7 BUN/Creatinine Ratio 19.1 18.1 Random Glucose 122 mg/dl 106 mg/dl Calcium Level 10.5 mg/dl 10.1 mg/dl Phosphorus Level 3.6 mg/dl 3.0 mg/dl Magnesium Level 2.1 mg/dl 2.1 mg/dl Total Bilirubin 0.4 mg/dl 0.3 mg/dl Direct Bilirubin 0.1 mg/dl < 0.1 mg/dl Aspartate Amino Transf (AST/SGOT) 19 U/L 16 U/L Alanine Aminotransferase (ALT/SGPT) 30 U/L 27 U/L Alkaline Phosphatase 108 U/L 95 U/L Total Creatine Kinase 132 U/L Creatine Kinase MB 2.2 ng/ml Creatine Kinase MB Ratio 1.7 Troponin I < 0.015 ng/ml < 0.015 ng/ml Total Protein 8.1 gm/dl 7.4 gm/dl Albumin 4.0 gm/dl 3.6 gm/dl Thyroid Stimulating Hormone (TSH) 5.260 uIu/ml Free Thyroxine 0.94 ng/dl Total Triiodothyronine 1.16 ng/ml Globulin 3.8 gm/dl Albumin/Globulin Ratio 0.9 Telemetry personally reviewed. Atrial fibrillation. ECG personally reviewed. ECG 12/24/2017: Atrial fibrillation with rapid ventricular response at [address] abnormality. Echocardiogram images were preliminarily reviewed. Preliminary echo findings 12/25/2017: Normal LV systolic function. No regional wall motion abnormalities. Formal review to follow. Chest Xray personally reviewed. CXR 12/24/17: No obvious infiltrate of CHF findings. No acute process as per radiology. Assessment & Plan ASSESSMENT/PLAN: 1. Atrial fibrillation: Appears to be in persistent atrial fibrillation but cannot rule out paroxysmal. We discussed the diagnosis in detail with the help of a diagram. He had already read about atrial fibrillation in detail and he prefers a rate control strategy. As he is currently on diltiazem drip and recently started on metoprolol succinate, oral diltiazem will also be added to his regimen at 30 mg q.6 hours. Would then anticipate titrating medications as appropriate so that intravenous medications can be discontinued. His chads Vasc score is 0. Anticoagulation therapy is not warranted unless we would try to cardiovert him, which he would like to avoid at this time. 2. Chest pain: Likely secondary to atrial fibrillation with rapid ventricular response. The symptoms have resolved with improvement in his heart rate. If he has recurrent symptoms in the future when not significantly tachycardic, would consider ischemic evaluation. 3. Disposition: Cardiology will continue to follow. Plan of care was discussed with primary service, Dr. Pink. Thank you for allowing me to participate in the care of your patient. Please call for any other questions or concerns. Sincerely, Pastor Daley M.D.
--- NOTE | 2017-12-25 15:11 | ECHOCARDIOGRAM REPORT ---
*NOTICE TO RECEIVING [employer]Y This information is strictly Confidential and protected under [place] law. [place] law prohibits you from making any further disclosure of this information unless further disclosure is expressly permitted by the written consent of the person to whom it pertains or is authorized by law. A general authorization for the release of medical or other information is not sufficient for this purpose. Hospital accepts no responsibility if the information is made available to any other person, INCLUDING THE PATIENT. Interpretation Summary * Name: TENNILLE BORJA Study Date: 12/25/2017 07:31 AM BP: 131/82 mmHg * Patient Location: C.2T\S\E218\S\1 HR: 107 * : 1955 (M/d/yyyy) Gender: Male Height: 74 in * Age: 62 yrs Ethnicity: CA Weight: 224 lb * Ordering Physician: Kavita Holloway * Referring Physician: Self, Referred * Performed By: Italo Kumar RDCS * * Reason For Study: A-fib * BSA: 2.3 m2 * -- Conclusions -- * 1. Normal left ventricular size and systolic function. EF 55-60%. No regional wall motion abnormalities. No left ventricular hypertrophy. * 2. The right ventricle is mildly dilated. The right ventricular systolic function is normal. * 3. There is mild mitral regurgitation. * 4. Atrial fibrillation. * 5. No prior study available for comparison. Procedure Details * A complete two-dimensional transthoracic echocardiogram was performed (2D, M-mode, Doppler and color flow Doppler). * The study was technically adequate. Left Ventricle * Normal left ventricular size and systolic function. EF 55-60%. No regional wall motion abnormalities. No left ventricular hypertrophy. Right Ventricle * The right ventricle is mildly dilated. * The right ventricular systolic function is normal. * The right ventricular systolic function is normal as assessed by tricuspid annular plane systolic excursion (TAPSE) (normal >1.5 cm). Atria * The left atrial size is normal. * Right atrial size is normal. * There is no evidence of atrial septal defect, but resolution does not allow assessment for a patent foramen ovale. Mitral Valve * The mitral valve leaflets appear normal. There is no evidence of stenosis, fluttering, or prolapse. * There is mild mitral regurgitation. Tricuspid Valve * The tricuspid valve is not well visualized, but is grossly normal. * There is no tricuspid stenosis. * There is trace tricuspid regurgitation. Aortic Valve * The aortic valve is trileaflet. * No hemodynamically significant valvular aortic stenosis. * No aortic regurgitation is present. Pulmonic Valve * The pulmonary valve is inadequately visualized, but the Doppler data is adequate for interpretation. * There is no pulmonic valvular stenosis. * Trace pulmonic valvular regurgitation. Great Vessels * The aortic root is normal size. * Aortic arch of normal dimension. Pericardium/Pleural * There is no pericardial effusion. Great Vessels * Normal inferior vena cava size and collapsability with sniff indicates a normal right atrial pressure of 3 mmHg MMode 2D Measurements and Calculations IVSd 1.1 cm IVSs 1.4 cm LVIDd 3.9 cm LVIDs 2.4 cm LVPWd 1.1 cm LVPWs 1.4 cm IVS/LVPW 1.1 FS 38.6 % EDV(Teich) 67.2 ml ESV(Teich) 20.4 ml EF(Teich) 69.6 % EDV(cubed) 60.7 ml ESV(cubed) 14.0 ml EF(cubed) 76.9 % % IVS thick 28.0 % % LVPW thick 27.8 % LV mass(C)d 141.0 grams LV mass(C)dI 61.8 grams/m\S\2 LV mass(C)s 106.9 grams LV mass(C)sI 46.9 grams/m\S\2 SV(Teich) 46.7 ml SI(Teich) 20.5 ml/m\S\2 SV(cubed) 46.7 ml SI(cubed) 20.5 ml/m\S\2 Ao root diam 3.4 cm Ao root area 9.3 cm\S\2 ACS 2.0 cm LA dimension 3.6 cm asc Aorta Diam 3.4 cm LA/Ao 1.0 LVOT diam 2.0 cm LVOT area 3.2 cm\S\2 LVAd ap4 25.9 cm\S\2 LVLd ap4 8.4 cm EDV(MOD-sp4) 66.7 ml EDV(sp4-el) 67.2 ml LVAs ap4 15.9 cm\S\2 LVLs ap4 7.6 cm ESV(MOD-sp4) 29.3 ml ESV(sp4-el) 28.3 ml EF(MOD-sp4) 56.1 % EF(sp4-el) 57.9 % LVAd ap2 24.8 cm\S\2 LVLd ap2 9.0 cm EDV(MOD-sp2) 57.7 ml EDV(sp2-el) 57.8 ml LVAs ap2 14.1 cm\S\2 LVLs ap2 7.2 cm ESV(MOD-sp2) 23.3 ml ESV(sp2-el) 23.4 ml EF(MOD-sp2) 59.6 % EF(sp2-el) 59.4 % LVLd %diff 6.7 % EDV(MOD-bp) 63.6 ml LVLs %diff -7.07 % ESV(MOD-bp) 26.2 ml EF(MOD-bp) 58.7 % SV(MOD-sp4) 37.4 ml SI(MOD-sp4) 16.4 ml/m\S\2 SV(MOD-sp2) 34.4 ml SI(MOD-sp2) 15.1 ml/m\S\2 SV(MOD-bp) 37.3 ml SI(MOD-bp) 16.4 ml/m\S\2 SV(sp4-el) 39.0 ml SI(sp4-el) 17.1 ml/m\S\2 SV(sp2-el) 34.4 ml SI(sp2-el) 15.1 ml/m\S\2 Doppler Measurements and Calculations MV E max sobeida 94.9 cm/sec MV dec time 0.19 sec Ao V2 max 101.1 cm/sec Ao max PG 4.1 mmHg Ao max PG (full) 2.2 mmHg JENNIFER(V,A) 2.2 cm\S\2 JENNIFER(V,D) 2.2 cm\S\2 LV V1 max PG 1.9 mmHg LV V1 max 68.3 cm/sec RAP systole 3.0 mmHg
[2017-12-25 15:37] VITALS: BP 97/65; PULSE 75; TEMP 36.9; O2SAT 96
[2017-12-25] MEDS ORDERED: METO50TA8 PO (17:34)
--- NOTE | 2017-12-25 17:42 | Discharge Instructions ---
Discharge Instructions Date of Service Dec 25, 2017. Admission Reason for Admission: A Fib With Rvr Discharge Discharge Diagnosis / Problem: Atrial fibrillation with rapid ventricular rate (RVR) Discharge Goals Goal(s): Improve disease control, Learn about illness Activity Recommendations Activity Limitations: resume your previous activity . Instructions / Follow-Up Instructions / Follow-Up You were admitted to the hospital for evaluation of atrial fibrillation (A. fib ) with rapid ventricular rate (RVR). Your treated with two different medications as an inpatient, diltiazem and metoprolol, which converted your heart rhythm back to normal (normal sinus). After discussion with cardiology service, we recommend you start a medication called metoprolol succinate 50 mg p.o. daily. This is a relatively low dose, therefore it may not be the final dose (or even medication) you are on for long- term treatment. Therefore, it remains very important that you follow up with the cardiology service during this next week for close post-hospital care. They should contact you for scheduling. If you notice a return of palpitations, you can take a second single dose of this metoprolol. Do not take more than two doses per day unless recommended by a doctor at your follow-up visit. If you have the return of a rapid heart rate , or any chest discomfort at all, you should be re-evaluated in the emergency department acutely. Please follow-up with your primary care doctor as well for continuity of care purposes. As part of your evaluation, your thyroid hormone level (TSH) was mildly elevated. No acute treatment was required, however this can be discussed and possibly retested in the near future. Current Hospital Diet Patient's current hospital diet: AHA Diet (Heart Healthy) Discharge Diet Recommended Diet: AHA Diet (Heart Healthy) Pending Studies Studies pending at discharge: no Medical Emergencies . Who to Call and When: Medical Emergencies: If at any time you feel your situation is an emergency, please call 911 immediately. . Non-Emergent Contact Non-Emergency issues call your: Primary Care Provider, Casing Crew .
--- NOTE | 2017-12-25 17:54 | Discharge Summary ---
Discharge Summary Date of Service Dec 25, 2017. Discharge Summary Admission Date: Dec 25, 2017 at 03:39 Discharge Date: Dec 25, 2017 Discharge Disposition: Home Principal Diagnosis: Afib with RVR Immunizations: Have You Had Influenza Vaccine: Unknown History of Tetanus Vaccine?: Unknown History of Pneumococcal: Unknown History of Hepatitis B Vaccine: Unknown Procedures: 24Dec2017 - CHEST ONE VIEW PORTABLE IMPRESSION: Negative chest. 24Dec2017 - Transthoracic echocardiogram * -- Conclusions -- * 1. Normal left ventricular size and systolic function. EF 55-60%. No regional wall motion abnormalities. No left ventricular hypertrophy. * 2. The right ventricle is mildly dilated. The right ventricular systolic function is normal. * 3. There is mild mitral regurgitation. * 4. Atrial fibrillation. * 5. No prior study available for comparison. Consultations: 24Dec2017 Cardiology Note Assessment & Plan 1. Atrial fibrillation: Appears to be in persistent atrial fibrillation but cannot rule out paroxysmal. We discussed the diagnosis in detail with the help of a diagram. He had already read about atrial fibrillation in detail and he prefers a rate control strategy. As he is currently on diltiazem drip and recently started on metoprolol succinate, oral diltiazem will also be added to his regimen at 30 mg q.6 hours. Would then anticipate titrating medications as appropriate so that intravenous medications can be discontinued. His chads Vasc score is 0. Anticoagulation therapy is not warranted unless we would try to cardiovert him, which he would like to avoid at this time. 2. Chest pain: Likely secondary to atrial fibrillation with rapid ventricular response. The symptoms have resolved with improvement in his heart rate. If he has recurrent symptoms in the future when not significantly tachycardic, would consider ischemic evaluation. Medication Reconciliation New Medications: Metoprolol Succ (Toprol Xl) (Toprol-Xl) 50 Mg Tabcr 1 TAB PO DAILY for 30 Days, #30 TAB 0 Refills may take single extra dose daily if palpitations. Continued Medications: Aspirin (Aspirin Ec) 81 Mg Tab 81 MG PO QPM Ranitidine Hcl (Zantac) 75 Mg Tab 75 MG PO DAILY PRN for GI Upset, TAB Simvastatin (Zocor) 10 Mg Tab 10 MG PO QPM, TAB Discharge Exam General Appearance: Awake, alert & oriented, comfortable in general, NAD. CV: 2+ radial, carotid, dorsalis pedis pulses. No carotid bruits bilaterally. - In AM: +S1S2 irregularly irregular but not tachycardic, no murmur. - In PM: +S1S2 RRR. Pulm: Clear to auscultation throughout. Abdomen: +BS, soft, non-tender, non-distended. Extremities: No pedal edema or calf tenderness. Moving all extremities naturally and easily. Neuro: No gross neuro deficits. Review of Systems: Constitutional: No fever, No chills Respiratory: No cough, No shortness of breath Cardiovascular: No chest pain, No edema Abdomen: No pain, No nausea, No vomiting Hospital Course HPI at time of admit on Dec 25, 2017 at 03:39 62-year-old male with a past medical history of hyperlipidemia presented with complaints of irregular heart rate intermittently which started about 3 weeks ago. The patient states that he had a history of atrial flutter several years ago and was on metoprolol which was stopped about 9 years ago. He had since been asymptomatic but developed intermittent palpitations about 3 weeks ago. The palpitations would normally resolve after a few minutes but tonight they seem to persist. denies any lightheadedness or dizziness, shortness of breath or chest pain. Discharge summary on 25Dec2017 62-year-old male was admitted on for A. fib with RVR after experiencing palpitations for the past 3-4 weeks. PMH: HLD New onset atrial fibrillation with RVR: Patient says he has a history of atrial flutter several years ago and was on metoprolol for a brief time. With these recent palpitations, the patient experienced some mild chest tightness when his rates were their highest elevation. No associated respiratory symptoms. CXR here showed nothing acute. Normal troponins. Cardiology was consulted. An echocardiogram was performed and was reassuring (see full report). He was started on a diltiazem drip and transitioned over to both metoprolol and diltiazem p.o. with conversion back to sinus in early afternoon. Repeat EKG at 1729 was NSR 71. - Will discharge home on Toprol XL 50 mg PO q day. He can take an additional dose if he feels palpitations return. Plan for close cardiology follow up in this coming week as well. - Return to ED precautions reviewed in case of rapid beating or any chest symptoms. - His CHADS-VASc score is zero therefore anticoagulation is not warranted at this time. However, he remains on his home aspirin 81 mg for general cardiac prevention. Hyperlipidemia: On home Zocor 10 mg daily. No acute changes. Elevated TSH: Here TSH was 5.26 but free T4 was 0.94. Recommended close PCM f/ u for same and possible recheck in four weeks. Resident Physician Supervision Note: I interviewed and examined the patient. Discussed with Dr. Pink and agree with findings and plan as documented in the note. Any exceptions or clarifications are listed here: None Documented By: Geovanni fox w above. converted to NSR so able to go home otherwise as above and progress notes from today Total Time Spent: Greater than 30 minutes This includes examination of the patient, discharge planning, medication reconciliation, and communication with other providers. Discharge Instructions Please refer to the electronic Patient Visit Report (Discharge Instructions) for additional information. Additional Copies To Alvaro Watt M.D.; Williams Daley MD Resident Tracking Resident Involvement: Resident Care Provided Care Provided: Adult Hospital Medicine (inpatient)
[2017-12-25 18:07] VITALS: BP 97/65; PULSE 75; TEMP 36.9; O2SAT 96
[2017-12-25] MEDS ORDERED: SIMVASTATIN 10 MG TAB PO SCH (21:00)
[2017-12-25] MEDS ORDERED: ASPIRIN 81 MG ECTAB PO SCH (21:00)
[2017-12-26] MEDS ORDERED: METOPROLOL SUCC 25MG EXT REL TAB PO SCH (09:00)
== END 2017-12-25 18:37 | disposition home or self-care (01) | DRG 310 ==
LOC: C.EDB 23:37 → ENRESERV 12-25 02:00 → C.2T 12-25 03:39
PROVIDERS: ADMIT Family Medicine; ATTEND Family Medicine
DX: I48.0 Paroxysmal atrial fibrillation (principal); R07.9 Chest pain, unspecified; E78.00 Pure hypercholesterolemia, unspecified; Z79.82 Long term (current) use of aspirin; Z79.899 Other long term (current) drug therapy; Z88.0 Allergy status to penicillin